=== PATIENT | female | born 1935 | race Caucasian/White ===

== ENCOUNTER 2016-07-21 14:01 | Emergency (ER) | payer OTHER ==
[~2016-07-21] VITALS: Ht 170.2 cm; Wt 59.7 kg
[~2016-07-21 14:01] MED LIST: ADULT SUPPOSIT1 EACH PR; CARAFATE1 GM PO; CEFDINIR300 MG PO; COLACE100 MG PO; DRONABINOL2.5 MG PO; ENDOCET 5-3251 EACH PO; ERGOCALCIF50000 UNIT PO; FOLIC ACID0.8 MG PO; FOLIC ACID1 MG PO; GABAPENTIN300 MG PO; GEMFIBROZIL600 MG PO; HEPARIN SO5000 UNITS SC; LISINOPRIL10 MG PO; LORAZEPAM0.5 MG PO; LORAZEPAM1 MG PO; LYRICA100 MG PO; METFORMIN HCL500 MG PO; METOPROLOL TART25 MG PO; MIRALAX17 GM PO; NICOTINE PATCH1 EAC2 TD; OMEPRAZOLE20 MG PO; ONDANSETRON HCL8 MG PO; OXYCODONE-APAP1 EACH PO; POLYETHYLENE GL17 GM PO; SANTYL30 GM TP
[2016-07-21 16:55] LABS: BASOPHIL COUNT 0.1 K/uL (0-0.1); EOSINOPHIL (%) 3.8 % (0-5); EOSINOPHIL COUNT 0.3 K/uL (0-0.3); HEMATOCRIT 33.2 % (36.0-46.0); IMMATURE GRANULOCYTE (%) 0.6 % (0.0-0.7); IMMATURE GRANULOCYTE COUNT 0.5 K/uL; LYMPHOCYTE COUNT 1.6 K/uL (1.0-2.8); MCH 29.9 PG (29.0-34.0); MCHC 32.8 G/DL (30.0-36.0); MCV 91.2 FL (83-99); MEAN PLAT.VOLUME 10.4 uM^3 (9.5-12.4); MONOCYTE (%) 13.6 % (3-12); MONOCYTE COUNT 1.2 K/uL (0-0.8); NEUTROPHIL (%) 63.1 % (45-76); NEUTROPHIL COUNT 5.6 K/uL (1.8-6.4); PLATELET COUNT 397 K/uL (156-360); RBC DIS.WIDTH-CV 15.6 % (11.8-14.6); RBC DIS.WIDTH-SD 50.3 % (39-53); RED BLOOD COUNT 3.64 M/uL (3.80-5.20); WHITE BLOOD COUNT 8.9 K/uL (4.1-10.2)
[2016-07-21 17:16] LABS: TROP-I INTERPRETATION NEGATIVE; TROPONIN-I < 0.01 ng/mL (0.0-0.30)
[2016-07-21 17:35] LABS: CHLORIDE 103 mEq/L (99-109); POTASSIUM 4.4 mEq/L (3.7-5.4); SODIUM 139 mEq/L (136-147)
[2016-07-21 17:37] LABS: GLUCOSE 81 mg/dL (70-99)
[2016-07-21 17:39] LABS: ANION GAP 12 MEQ/L (2-14); TOTAL BILIRUBIN 0.2 mg/dL (0.0-1.0)
[2016-07-21 17:41] LABS: ALKALINE PHOSPHATASE 54 IU/L (3-129); GFR ESTIMATE (CALCULATED) 42 mL/min/
[2016-07-21 17:42] LABS: UREA NITROGEN (BUN) 27 mg/dL (9-23)
[2016-07-21 22:16] VITALS: BP 133/69
== END 2016-07-21 22:17 ==
LOC: EME 14:01
PROVIDERS: Emergency Medicine
DX: S09.90XA Unspecified injury of head, initial encounter (principal); S60.212A Contusion of left wrist, initial encounter; W07.XXXA Fall from chair, initial encounter; Y92.009 Unspecified place in unspecified non-institutional (private) residence as the place of occurrence of the external cause; Z85.118 Personal history of other malignant neoplasm of bronchus and lung; C79.31 Secondary malignant neoplasm of brain; E78.5 Hyperlipidemia, unspecified; I10 Essential (primary) hypertension; Z86.14 Personal history of Methicillin resistant Staphylococcus aureus infection; Z86.711 Personal history of pulmonary embolism; Z95.5 Presence of coronary angioplasty implant and graft; Z87.891 Personal history of nicotine dependence; Z88.5 Allergy status to narcotic agent; Z79.01 Long term (current) use of anticoagulants
CPT/HCPCS: 70450; 71010; 73110; 80053; 84484; 85025; 93005; 99281; 99285; J2270; J2405; J7040